=== PATIENT | female | born 1990 | race Caucasian/White ===

== ENCOUNTER 2017-09-25 10:09 | Emergency (ER) | payer MEDICAID ==
[~2017-09-25] VITALS: Ht 172.7 cm; Wt 98.2 kg
[~2017-09-25 10:09] MED LIST: ESCI20TA10 PO; IBUP200C5 PO; IBUP200T49 PO; METH5TAB2 PO; None per pt; OXYC-302 PO; PREN1TAB60 PO
[2017-09-25] MEDS ORDERED: ONDANSETRON ODT 4 MG ONE (11:22)
[2017-09-25] MEDS ORDERED: FAMOTIDINE 20 MG/2 ML ONE (11:22)
[2017-09-25 11:28] LABS: BASOPHILS # (AUTO) 0.02 x10^3/uL (0-0.1); BASOPHILS % (AUTO) 0 % (0-1); EOSINOPHILS # (AUTO) 0.15 x10^3/uL (0-0.4); EOSINOPHILS % (AUTO) 1 % (1-7); LYMPHOCYTES # (AUTO) 2.61 x10^3/uL (1-3.4); LYMPHOCYTES % (AUTO) 18 % (22-44); MD NO; MEAN CORPUSCULAR HEMOGLOBIN 27.7 pg (27.0-34.8); MEAN CORPUSCULAR HGB CONC 33.4 g/dL (32.4-35.8); MEAN CORPUSCULAR VOLUME 82.9 fL (80-100); MEAN PLATELET VOLUME 9.5 fL (7.4-10.4); MONOCYTES # (AUTO) 1.44 x10^3/uL (0.2-0.8); MONOCYTES % (AUTO) 10 % (2-9); NEUTROPHILS # (AUTO) 10.39 x10^3/uL (1.8-6.8); NEUTROPHILS % (AUTO) 71 % (42-75); PLATELET COUNT 267 x10^3/uL (130-400); RED BLOOD COUNT 5.41 x10^6/uL (3.82-5.3); RED CELL DISTRIBUTION WIDTH 14.1 % (9.6-15.2)
[2017-09-25] MEDS ORDERED: FAMOTIDINE 20 MG/2 ML IVP ONE (11:30)
[2017-09-25] MEDS ORDERED: ONDANSETRON ODT 4 MG PO ONE (11:30)
[2017-09-25] MEDS ORDERED: METH40TA3 PO (11:37)
[2017-09-25 11:40] LABS: ALANINE AMINOTRANSFERASE 20 U/L (12-78); ALBUMIN 3.5 g/dL (3.4-5.0); ANION GAP 9 mmol/L (5-15); CALCIUM 8.5 mg/dL (8.5-10.1); CHLORIDE 98 mmol/L (98-107); CREATININE 0.82 mg/dL (0.55-1.02)
[2017-09-25 11:45] LABS: ALKALINE PHOSPHATASE 84 U/L (45-117); BILIRUBIN,TOTAL 0.7 mg/dL (0.2-1.0); TOTAL PROTEIN 8.3 g/dL (6.4-8.2)
[2017-09-25 11:50] LABS: CULTURE INDICATED? YES; MICROSCOPIC INDICATED
[2017-09-25] MEDS ORDERED: SODIUM CHLORIDE FLUSH 10ML SYR IVF ONE (12:00)
[2017-09-25] MEDS ORDERED: SODIUM CHLORIDE 0.9% 1,000ML IVBOLUS ONE (12:00)
[2017-09-25] MEDS ORDERED: CEFTRIAXONE PMX 1GM/50ML 50 ML IVPB ONE (15:30)
[2017-09-25] MEDS ORDERED: CEFTRIAXONE PMX 1GM/50ML 50 ML ONE (15:38)
[2017-09-25 16:14] VITALS: BP 117/75
== END 2017-09-25 16:16 | disposition home or self-care (01) ==
LOC: ED 14:17
DX: N10 Acute pyelonephritis (principal); Z90.49 Acquired absence of other specified parts of digestive tract
CPT/HCPCS: 36415; 74176; 80053; 81001; 83690; 84703; 85025; 87077; 87086; 87186; 96365; 96375; 99285; J0696; J7030; Q0162; 96361; S0028

== ENCOUNTER 2018-02-19 10:47 | Emergency (ER) | payer MEDICAID ==
[~2018-02-19] VITALS: Ht 172.7 cm; Wt 92.0 kg
[~2018-02-19 10:47] MED LIST changes: +IBUP-1623 PO; -IBUP200C5 PO; +METH40TA3 PO
[2018-02-19 10:49] VITALS: BP 142/86
[2018-02-19] MEDS ORDERED: KETOROLAC 30 MG/1 ML ONE (11:07)
[2018-02-19] MEDS ORDERED: CYCLOBENZAPRINE 10 MG TABLET ONE (11:07)
[2018-02-19] MEDS ORDERED: KETOROLAC 30 MG/1 ML IM ONE (11:30)
[2018-02-19] MEDS ORDERED: CYCLOBENZAPRINE 10 MG TABLET PO ONE (11:30)
[2018-02-19 12:11] LABS: MICROSCOPIC NOT IND
[2018-02-19 12:16] LABS: CULTURE INDICATED? NO
== END 2018-02-19 12:29 | disposition home or self-care (01) ==
LOC: ED 11:13
DX: S39.012A Strain of muscle, fascia and tendon of lower back, initial encounter (principal); X58.XXXA Exposure to other specified factors, initial encounter; Y93.89 Activity, other specified; Y92.89 Other specified places as the place of occurrence of the external cause; Y99.8 Other external cause status
CPT/HCPCS: 72110; 81003; 96372; 99285; J1885

== ENCOUNTER 2019-11-14 10:23 | Emergency (ER) | payer MEDICAID ==
[~2019-11-14] VITALS: Ht 174.5 cm; Wt 102.6 kg
--- NOTE | 2019-11-14 11:08 | NUR ---
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
--- NOTE | 2019-11-14 11:15 | NUR ---
PT BROUGHT BACK FROM TRIAGE WITHCHIEF COMPLAINT OF N/V FOR 1.5 MONTHS. DENIES ANY OTHER SYMPTOMS, NO SOB, CP, OR RECENT TRAUMA. .
--- NOTE | 2019-11-14 12:05 | NUR ---
Pt resting in bed, call light inreach.
[2019-11-14 12:08] LABS: BASOPHILS # (AUTO) 0.05 x10^3/uL (0-0.1); BASOPHILS % (AUTO) 1 % (0-1); EOSINOPHILS # (AUTO) 0.26 x10^3/uL (0-0.4); EOSINOPHILS % (AUTO) 3 % (1-7); LYMPHOCYTES # (AUTO) 2.19 x10^3/uL (1-3.4); LYMPHOCYTES % (AUTO) 25 % (22-44); MD NO; MEAN CORPUSCULAR HGB CONC 32.6 g/dL (32.4-35.8); MEAN PLATELET VOLUME 8.9 fL (7.4-10.4); MONOCYTES # (AUTO) 0.28 x10^3/uL (0.2-0.8); MONOCYTES % (AUTO) 3 % (2-9); NEUTROPHILS # (AUTO) 6.17 x10^3/uL (1.8-6.8); NEUTROPHILS % (AUTO) 69 % (42-75); PLATELET COUNT 261 x10^3/uL (130-400); RED BLOOD COUNT 5.64 x10^6/uL (3.82-5.3); RED CELL DISTRIBUTION WIDTH 14.3 % (9.6-15.2)
[2019-11-14 12:14] LABS: ALBUMIN 3.9 g/dL (3.4-5.0); ANION GAP 6 mmol/L (5-15); CALCIUM 8.9 mg/dL (8.5-10.1); CHLORIDE 105 mmol/L (98-107)
[2019-11-14 12:18] LABS: ALANINE AMINOTRANSFERASE 29 U/L (12-78); ALKALINE PHOSPHATASE 85 U/L (45-117); BILIRUBIN,TOTAL 0.5 mg/dL (0.2-1.0); CREATININE 0.89 mg/dL (0.55-1.02); TOTAL PROTEIN 8.1 g/dL (6.4-8.2)
[2019-11-14 12:30] VITALS: BP 103/52
--- NOTE | 2019-11-14 13:14 | NUR ---
Discharge instructions reviewed.
== END 2019-11-14 13:16 | disposition home or self-care (01) ==
LOC: ED 12:19
DX: K21.0 Gastro-esophageal reflux disease with esophagitis (principal); R11.2 Nausea with vomiting, unspecified; R10.9 Unspecified abdominal pain; R00.0 Tachycardia, unspecified; Z90.89 Acquired absence of other organs; Z90.49 Acquired absence of other specified parts of digestive tract; Z90.710 Acquired absence of both cervix and uterus
CPT/HCPCS: 36415; 80053; 85025; 93005; 99284

== ENCOUNTER 2020-02-23 08:22 | Emergency (ER) | payer MEDICAID ==
[~2020-02-23] VITALS: Ht 172.7 cm; Wt 105.2 kg
[2020-02-23] MEDS ORDERED: ACETAMINOPHEN 325 MG TABLET ONE (08:48)
[2020-02-23] MEDS ORDERED: IBUPROFEN 800 MG TABLET ONE (08:48)
--- NOTE | 2020-02-23 08:53 | NUR ---
NAVARRO,BODY ACHES, FEVER, STARTING LAST NIGHT. WORKS IN [employer] AND WAS EXPOSED TO A KNOWN COVID PT. FEVER OF 100.3. NO NSAIDS THIS AM. PROVIDER TO BEDSIDE-SWABBED FOR COVID, TO MEDICATE WITH NSAIDS AND OBTAIN CXR THEN DISPO PLACED ON ELECT[employer]ER, ROOM AIR SAT 95%
--- NOTE | 2020-02-23 08:55 | NUR ---
COVID SWAB OBTAINED BY PROVIDER MEDICATED PER EMAR WITH TYLENOL/MOTRIN
--- NOTE | 2020-02-23 08:59 | NUR ---
CXR AT BEDSIDE
[2020-02-23] MEDS ORDERED: ACETAMINOPHEN 325 MG TABLET PO ONE ×2 (09:00)
[2020-02-23] MEDS ORDERED: ONDA4TAB7 PO (09:00)
[2020-02-23] MEDS ORDERED: IBUPROFEN 800 MG TABLET PO ONE (09:00)
--- NOTE | 2020-02-23 09:38 | NUR ---
PT NOTED TO BE 87-90% RA. ERP DR. LANZA NOTIFIED.
[2020-02-23 10:05] VITALS: BP 135/70
--- NOTE | 2020-02-23 10:20 | NUR ---
PT AMBULATED W/ STEADY GAIT. O2 SATS AND HR OBTAINED WHILE AMBULATING. PT SATING 90-92% RA AND HR 90-93. PER TOMI BELLO DC PT.
== END 2020-02-23 10:07 ==
LOC: ED 08:47
DX: U07.1 COVID-19 (principal); J06.9 Acute upper respiratory infection, unspecified; R07.89 Other chest pain; R05 Cough; R50.9 Fever, unspecified; M79.10 Myalgia, unspecified site; K21.9 Gastro-esophageal reflux disease without esophagitis
CPT/HCPCS: 36415; 71045; 87635; 99284

== ENCOUNTER 2020-03-01 12:15 | Emergency (ER) | payer MEDICAID ==
[~2020-03-01] VITALS: Ht 175.3 cm; Wt 104.6 kg
[~2020-03-01 12:15] MED LIST changes: +ONDA4TAB7 PO
[2020-03-01 12:20] VITALS: BP 137/91
--- NOTE | 2020-03-01 12:23 | NUR ---
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
[2020-03-01 12:54] LABS: BASOPHILS % (AUTO) 1 % (0-1); EOSINOPHILS % (AUTO) 6 % (1-7); LYMPHOCYTES % (AUTO) 36 % (22-44); MD NO; MEAN CORPUSCULAR HEMOGLOBIN 28.6 pg (27.0-34.8); MEAN CORPUSCULAR HGB CONC 33.4 g/dL (32.4-35.8); MEAN PLATELET VOLUME 8.4 fL (7.4-10.4); MONOCYTES % (AUTO) 4 % (2-9); NEUTROPHILS % (AUTO) 53 % (42-75); PLATELET COUNT 292 x10^3/uL (130-400); RED BLOOD COUNT 5.99 x10^6/uL (3.82-5.3); RED CELL DISTRIBUTION WIDTH 14.1 % (9.6-15.2)
[2020-03-01] MEDS ORDERED: SODIUM CHLORIDE FLUSH 10ML SYR IVF ONE (13:00)
[2020-03-01 13:05] LABS: CREATININE 0.95 mg/dL (0.55-1.02)
[2020-03-01 13:09] LABS: TROPONIN I < 0.015 ng/mL (0.000-0.045)
[2020-03-01 13:16] LABS: ANION GAP 3 mmol/L (5-15); CHLORIDE 104 mmol/L (98-107)
[2020-03-01] MEDS ORDERED: OMNIPAQUE 350 MG/ML, 100ML BOTTLE ONE (13:36)
== END 2020-03-01 14:12 | disposition home or self-care (01) ==
LOC: ED 12:45
DX: M94.0 Chondrocostal junction syndrome [Tietze] (principal); R07.2 Precordial pain; R00.0 Tachycardia, unspecified; R50.9 Fever, unspecified; R06.02 Shortness of breath; K21.9 Gastro-esophageal reflux disease without esophagitis
CPT/HCPCS: 36415; 71275; 80048; 82040; 84484; 85025; 93005; 99285; Q9967